=== PATIENT | female | born 1965 | race Two or more races ===

== ENCOUNTER 2017-11-16 14:31 | Emergency (ER) | payer MEDICAID ==
[2017-11-16 14:54] VITALS: BP 154/94; PULSE 98; RESP 18; TEMP 97.9; O2SAT 96
--- NOTE | 2017-11-16 15:30 | EDPHY ---
H & P Stated Complaint: Dx'd with UTI 3 days ago at ,started on Bactrim,changed to Cipro today Time Seen by Provider: 11/16/17 15:21 - Personal History LMP (Females 10-55): Post Menopausal Current Tetanus Diphtheria and Acellular Pertussis (TDAP): Yes - Medical/Surgical History Hx Diabetes: Yes - Social History Smoking Status: Current every day smoker Constitutional: Initial Vital Signs Temperature (C) 36.6 C 11/16/17 14:40 Heart Rate 98 11/16/17 14:40 Respiratory Rate 18 11/16/17 14:40 Blood Pressure 154/94 H 11/16/17 14:40 O2 Sat (%) 96 11/16/17 14:40 O2 Delivery Mode Room Air Allergies/Adverse Reactions: aspirin Allergy (Unknown, Verified 11/16/17 14:54) Home Medications: Medication Instructions Recorded Ciprofloxacin [Cipro] 500 mg PO BID #14 tab 11/16/17 Lisinopril [Zestril 10 mg (*)] 10 mg PO 11/16/17 Phenazopyridine HCl [Pyridium] 200 mg PO TID #6 tab 11/16/17 Sulfamethox/Tmp 800/160 mg 1 tab PO 11/16/17 [Bactrim Ds] glyBURIDE [Glyburide] 5 mg PO 11/16/17 metFORMIN HCL [Glucophage 500 mg 500 mg PO BIDMEAL 11/16/17 (*)] Medical Decision Making ED Course/Re-evaluation: CHIEF COMPLAINT: UTI HISTORY OF PRESENT ILLNESS: The patient is a 52 y/o female arriving with her family member at the referral of urgent care for evaluation of a UTI. She was diagnosed with a UTI a few days ago at urgent care and was prescribed Bactrim. Her symptoms of dysuria and hematuria have not improved and urgent care called her and recommended switching to Cipro, which they called into a pharmacy for her, but she was told to come here first for unclear reasons. She denies fever, cough, cold, or other symptoms. REVIEW OF SYSTEMS: A 10 point review of systems was performed and is negative with the exception of the elements mentioned in the history of present illness. PHYSICAL EXAM: HR, BP, O2 Sat, RR. Temp noted General Appearance: Alert, well hydrated, appropriate, and non-toxic appearing. Head: Atraumatic without scalp tenderness or obvious injury Eyes: Pupils equal, round, reactive to light and accommodation, EOMI, no trauma , no injection. Ears: Clear bilaterally, no perforation, normal landmarks Nose: Atraumatic, no rhinorrhea, clear. Throat: There is no erythema or exudates, no lesions, normal tonsils, mucus membranes moist. Neck: Supple Respiratory: No distress Cardiovascular: Good capillary refill all extremities. Gastrointestinal: Abdomen is soft, non-tender, non-distended, no masses, no rebound, no guarding, no peritoneal signs. Musculoskeletal: Normal active ROM of all extremities, atraumatic. Neurological: Alert, appropriate, and interactive. Nonfocal neuro exam. Skin: No rashes, good turgor, no nodules on palpation. PAST MEDICAL HISTORY: Hypertension, diabetes PAST SURGICAL HISTORY: Noncontributory SOCIAL HISTORY: Family member at bedside. Went to [facility]. DIFFERENTIAL DIAGNOSIS: The differential diagnosis for the patient's symptoms included but was not limited to urinary tract infection, viral syndrome, and sepsis. MEDICAL DECISION MAKIN52 y/o female presents at referral of urgent care requesting Cipro for previously diagnosed UTI. It's unclear why she came to the ED as the urgent care called in a new prescription to a pharmacy for her. No new symptoms today, she just feels she has not improved. Benign abdomen. Urine sample has been sent for culture again. We will prescribe Cipro for her. She will be discharged with standard UTI care and follow up instructions. Return precautions discussed. Departure - Departure Disposition: Home, Routine, Self-Care Clinical Impression: UTI (urinary tract infection) Qualifiers: Urinary tract infection type: acute cystitis Hematuria presence: with hematuria Qualified Code(s): N30.01 - Acute cystitis with hematuria Condition: Good Instructions: Ciprofloxacin (By mouth), Urinary Tract Infection in Women (DC) Additional Instructions: 1. Discontinue Bactrim. 2. Start taking Cipro as prescribed. Complete entire prescription. 3. Use Pyridium as directed on the packaging for urinary discomfort. This may change the color of your urine; this is normal. 4. Follow up with your primary care provider for unimproved symptoms over the next 3-4 days. Referrals: [facility],. [Clinic] - As per Instructions Prescriptions: Ciprofloxacin [Cipro] 500 mg PO BID #14 tab Phenazopyridine HCl [Pyridium] 200 mg PO TID #6 tab Report Scribed for: Richard Fuentes Report Scribed by: Marcela Farah Date of Report: 11/16/17 Time of Report: 15:30
== END 2017-11-16 15:30 | disposition home or self-care (01) ==
DX: N30.01 Acute cystitis with hematuria (principal); E11.9 Type 2 diabetes mellitus without complications; F17.200 Nicotine dependence, unspecified, uncomplicated; I10 Essential (primary) hypertension; B96.20 Unspecified Escherichia coli [E. coli] as the cause of diseases classified elsewhere; Z79.84 Long term (current) use of oral hypoglycemic drugs

== ENCOUNTER 2019-02-28 21:21 | Inpatient (IN) | payer MEDICAID ==
[2019-02-28] MEDS ORDERED: NS 1,000 ML IV ONE ×2 (21:40→22:34)
[2019-02-28 22:00] LABS: PLATELET COUNT 252 10^3/uL (150-400)
[2019-02-28] MEDS ORDERED: LISINOPRIL 20 MG TAB PO ONE (22:06)
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
[2019-03-01] MEDS ORDERED: metFORMIN HCL 500 MG TAB PO ONE (00:29)
[2019-03-01] MEDS ORDERED: IBUPROFEN 600 MG TAB PO ONE (06:05)
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
[2019-03-01] MEDS ORDERED: OLANZapine DISINTEGR 10 MG TAB PO PRN (14:46)
[2019-03-01] MEDS ORDERED: MAGNESIUM HYDROXIDE 30 ML UDCUP PO PRN (14:46)
[2019-03-01] MEDS ORDERED: LORazepam 0.5 MG TAB PO PRN (14:46)
[2019-03-01] MEDS ORDERED: ACETAMINOPHEN 325 MG TAB PO PRN (14:46)
[2019-03-01] MEDS ORDERED: NICOTINE POLACRILEX 2 MG GUM B PRN (14:46)
[2019-03-01] MEDS ORDERED: MAG HYDROX/AL HYDROX/SIMETH 30 ML UDCUP PO PRN (14:46)
[2019-03-01] MEDS: metFORMIN HCL 500 MG TAB PO SCH (17:04)
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
[2019-03-01] MEDS: traZODone 100 MG TAB PO PRN (20:47)
[2019-03-01] MEDS ORDERED: LITHIUM CARBONATE ER 300 MG TAB PO SCH (21:00)
--- NOTE | 2019-03-02 08:48 | SOAPPROG ---
SOAP Progress Note Assessment/Plan: Assessment: Bipolar II Disorder. Medication non-adherence prior to admission. Slight improvement noted (see Subjective/Objective). Patient could benefit from continued inpatient hospitalization for crisis stabilization, safety, and lithium level prior to discharge to ensure therapeutic level. Plan: 1. Psychotropic medications: Increase lithium to 300 mg po QD and 600 mg po QHS. 2. Review with patient informed consent and recommendations for psychotropic medication treatment listed below 3. Labs: A1c, liver function, lipid panel, and TSH. [place] level AM. 4. Therapy: continue milieu and group therapy 5. Further investigation including gathering information from patients relatives and review of past case records to inform treatment plan. 6. Safety/Wellness plan and follow-up outpatient appointments to be established prior to discharge. Next steps are for patient to meet with healthcare economics consultant to plan a safe discharge plan and establish outpatient services for ongoing treatment. 7. Confer with inpatient treatment team regarding treatment plan. 8. Psychosocial stressors addressed through outsole caser 9. Legal status: voluntary 10. Consider discharge after lithium level if patient is in stable condition, safe, and has a safe discharge plan. PSYCHOTROPIC MEDICATION TREATMENT INFORMED CONSENT and RECOMMENDATIONS: Review nature of condition, diagnosis, and prognosis. Review nature and purpose of psychotropic medication treatment. Review type of psychotropic medications being ordered. Review risk and benefits of psychotropic medication treatment. Review probable length of time patient will need to take medications. Review risk and benefits of not undergoing psychotropic medication treatment. Review alternative treatments to psychotropic medications. Review psychotropic medications contraindications, drug-drug interactions, side effects, and importance of reporting any side effects to a psychiatric provider or nurse during inpatient hospitalization, and upon discharge to patients psychiatric outpatient provider, primary care provider, or other health healthcare interpreter. Review importance of asking a nurse, psychiatric provider, or primary care provider any questions or problems concerning the psychotropic medications. Verify patient understands the information that has been provided, and understands, accepts, and agrees to psychotropic medications. Review patients safety plan and importance of patient to report to staff while hospitalized if patient is ever a danger to self/others, or unable to care for self, and upon discharge, the importance for patient to contact [facility] or 1, or go to the nearest emergency room, if patient is ever a danger to self/others, or unable to care for self. Recommend that upon discharge patient establish medication management treatment with a psychiatric provider, establishes routine therapy appointments, and follow-up with primary care provider. Verify patient understands and agrees to these recommendations. 03/02/19 08:49 Subjective: Following up with patient for evaluation of mood and safety. Patient states, "Doing better." Patient reports no side effects from current medications. Review current dosing of medications with patient, and patient states, "I need a lot higher dose of lithium than that (300 mg BID) to get stable. I have been on lithium since my early 20s. I am not sure of the exact dose, but I think it is around 1,000 a day." Patient agrees to increase lithium to 300 mg po QD and 600 mg po QHS with lithium level on morning prior to AM dose. Objective: Vital Signs Temp Pulse Resp BP Pulse Ox 36.9 C 75 14 136/78 H 97 03/02/19 06:00 03/02/19 06:00 03/02/19 06:00 03/02/19 06:00 03/02/19 06:00 MD REPORT FROM WEEKEND: Hx BD II, has not taken meds for over 3 months. Re- started her meds, including BP and DM meds, except Seroquel which she didnt want. MSE: The patient is a well-nourished female looking stated chronological age. Attire is appropriate dress is casual. Grooming status is appropriate. Ambulation is independent. Gait is normal and coordinated. Posture is normal and relaxed. Eye contact is appropriate. Motor activity is appropriate with purposeful, organized, coordinated movements; with no involuntary movements. Attitude is cooperative. Patient appears attentive, and relates well to this interviewer. Language production is spontaneous. Rate is pressured, latency of response is shortened, with inappropriately high volume. Articulation is clear. Patient reports mood as okay with expansive affect. Patients thought process is circumstantial. Patient does not report suicidal/homicidal thoughts , ideas, or plans. Patient denies auditory, visual hallucinations. Patient denies delusions. Patient does not appear to be attending to internal stimuli. Patients attention and concentration are poor. Patient is oriented to person , place, time. Patients insight is poor. Patients judgment is poor. - Time Spent With Patient Time Spent With Patient: 15 minutes, met with patient individually. - Pending Discharge Pending Discharge Within 24 Hours: No Pending Discharge Within 48 Hours: No ICD10 Worksheet Patient Problems: Problems Problem Status Onset Bipolar II disorder Acute Depression Acute
[2019-03-02] MEDS: LISINOPRIL 10 MG TAB PO SCH (09:29)
[2019-03-02] MEDS: metFORMIN HCL 500 MG TAB PO SCH ×2 (09:30→17:12)
[2019-03-02] MEDS: LITHIUM CARBONATE ER 300 MG TAB PO SCH ×2 (09:30→20:42)
[2019-03-02] MEDS: glyBURIDE 5 MG TAB PO SCH ×2 (09:37→10:04)
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
--- NOTE | 2019-03-03 06:34 | SOAPPROG ---
SOAP Progress Note Assessment/Plan: Assessment: Bipolar II Disorder. Medication non-adherence prior to admission. Slight improvement noted (see Subjective/Objective). Patient could benefit from continued inpatient hospitalization for crisis stabilization, safety, and lithium level prior to discharge to ensure therapeutic level. Plan: 1. Psychotropic medications: no changes. 2. Review with patient informed consent and recommendations for psychotropic medication treatment listed below 3. Labs: no additional. 4. Therapy: continue milieu and group therapy 5. Further investigation including gathering information from patients relatives and review of past case records to inform treatment plan. 6. Safety/Wellness plan and follow-up outpatient appointments to be established prior to discharge. Next steps are for patient to meet with professional healthcare representative to plan a safe discharge plan and establish outpatient services for ongoing treatment. 7. Confer with inpatient treatment team regarding treatment plan. 8. Psychosocial stressors addressed through machine adjuster leader case trim 9. Legal status: voluntary 10. Consider discharge after lithium level if patient is in stable condition, safe, and has a safe discharge plan. PSYCHOTROPIC MEDICATION TREATMENT INFORMED CONSENT and RECOMMENDATIONS: Review nature of condition, diagnosis, and prognosis. Review nature and purpose of psychotropic medication treatment. Review type of psychotropic medications being ordered. Review risk and benefits of psychotropic medication treatment. Review probable length of time patient will need to take medications. Review risk and benefits of not undergoing psychotropic medication treatment. Review alternative treatments to psychotropic medications. Review psychotropic medications contraindications, drug-drug interactions, side effects, and importance of reporting any side effects to a psychiatric provider or nurse during inpatient hospitalization, and upon discharge to patients psychiatric outpatient provider, primary care provider, or other health direct care counselor. Review importance of asking a nurse, psychiatric provider, or primary care provider any questions or problems concerning the psychotropic medications. Verify patient understands the information that has been provided, and understands, accepts, and agrees to psychotropic medications. Review patients safety plan and importance of patient to report to staff while hospitalized if patient is ever a danger to self/others, or unable to care for self, and upon discharge, the importance for patient to contact [facility] or [facility], or go to the nearest emergency room, if patient is ever a danger to self/others, or unable to care for self. Recommend that upon discharge patient establish medication management treatment with a psychiatric provider, establishes routine therapy appointments, and follow-up with primary care provider. Verify patient understands and agrees to these recommendations. 03/03/19 06:33 Subjective: Following up with patient for evaluation of mood and safety. Patient states, "Feeling much better. Good to get started back on medications." Patient reports no side effects from current medications, and agrees to continue current medications. Objective: Vital Signs Temp Pulse Resp BP Pulse Ox 36.6 C 74 14 141/69 H 97 03/03/19 06:00 03/03/19 06:00 03/03/19 06:00 03/03/19 06:00 03/03/19 06:00 MSE: The patient is a well-nourished female looking stated chronological age. Attire is appropriate dress is casual. Grooming status is appropriate. Ambulation is independent. Gait is normal and coordinated. Posture is normal and relaxed. Eye contact is appropriate. Motor activity is appropriate with purposeful, organized, coordinated movements; with no involuntary movements. Attitude is cooperative. Patient appears attentive, and relates well to this interviewer. Language production is spontaneous. Rate is pressured, latency of response is shortened, with inappropriately high volume. Articulation is clear. Patient reports mood as anxious with expansive affect. Patients thought process is circumstantial. Patient does not report suicidal/homicidal thoughts, ideas, or plans. Patient denies auditory, visual hallucinations. Patient denies delusions. Patient does not appear to be attending to internal stimuli. Patients attention and concentration are poor. Patient is oriented to person, place, time. Patients insight is poor. Patients judgment is poor. - Time Spent With Patient Time Spent With Patient: 15 minutes, met with patient individually. - Pending Discharge Pending Discharge Within 24 Hours: No Pending Discharge Within 48 Hours: No ICD10 Worksheet Patient Problems: Problems Problem Status Onset Bipolar II disorder Acute Depression Acute
[2019-03-03] MEDS: metFORMIN HCL 500 MG TAB PO SCH ×2 (09:21→17:55)
[2019-03-03] MEDS: LITHIUM CARBONATE ER 300 MG TAB PO SCH ×2 (09:21→20:36)
[2019-03-03] MEDS: LISINOPRIL 10 MG TAB PO SCH (09:21)
[2019-03-03] MEDS: glyBURIDE 5 MG TAB PO SCH (09:22)
--- NOTE | 2019-03-03 13:40 | ASMTBHDC ---
Notes Note: Notes: The patient called and spoke with multiple advocates at [facility] confirming that she is able to return to their [facility] upon discharge. The patient anticipates discharging on , March 05. The patient was calm, engaged, and appropriate. She expressed appreciation and reported improved mood. The patient reported "trembling" each morning when she wakes. She is curious why and plans to discuss this with the provider. [facility] [address], [address] [place] [address], [id number] O# [phone] Next appointment with Sawyer Fernandez for Intake Assessment on March 12 @ 9:00; check-in @ 8:50. [facility] [address], [address] [place] [address], [id number] Next appointment with Dedra Bocanegra NP on March 13 @ 7:50-9:00. Date Signed: 03/03/2019 01:39 PM Electronically Signed By:Kate Bustos
--- NOTE | 2019-03-04 06:32 | SOAPPROG ---
SOAP Progress Note Assessment/Plan: Assessment: Bipolar II Disorder. Medication non-adherence prior to admission. Improvement noted (see Subjective/Objective). Patient could benefit from continued inpatient hospitalization for crisis stabilization, safety, and lithium level prior to discharge to ensure therapeutic level. Consider discharge tomorrow after lithium level if stable and safe discharge plan. Plan: 1. Psychotropic medications: no changes. 2. Review with patient informed consent and recommendations for psychotropic medication treatment listed below 3. Labs: lithium level tomorrow AM prior to AM dose 4. Therapy: continue milieu and group therapy 5. Further investigation including gathering information from patients relatives and review of past case records to inform treatment plan. 6. Safety/Wellness plan and follow-up outpatient appointments to be established prior to discharge. Next steps are for patient to meet with home care giver to plan a safe discharge plan and establish outpatient services for ongoing treatment. 7. Confer with inpatient treatment team regarding treatment plan. 8. Psychosocial stressors addressed through shoe parts caser 9. Legal status: voluntary 10. Consider discharge after lithium level if patient is in stable condition, safe, and has a safe discharge plan. PSYCHOTROPIC MEDICATION TREATMENT INFORMED CONSENT and RECOMMENDATIONS: Review nature of condition, diagnosis, and prognosis. Review nature and purpose of psychotropic medication treatment. Review type of psychotropic medications being ordered. Review risk and benefits of psychotropic medication treatment. Review probable length of time patient will need to take medications. Review risk and benefits of not undergoing psychotropic medication treatment. Review alternative treatments to psychotropic medications. Review psychotropic medications contraindications, drug-drug interactions, side effects, and importance of reporting any side effects to a psychiatric provider or nurse during inpatient hospitalization, and upon discharge to patients psychiatric outpatient provider, primary care provider, or other health long term care phlebotomist. Review importance of asking a nurse, psychiatric provider, or primary care provider any questions or problems concerning the psychotropic medications. Verify patient understands the information that has been provided, and understands, accepts, and agrees to psychotropic medications. Review patients safety plan and importance of patient to report to staff while hospitalized if patient is ever a danger to self/others, or unable to care for self, and upon discharge, the importance for patient to contact [facility] or [facility], or go to the nearest emergency room, if patient is ever a danger to self/others, or unable to care for self. Recommend that upon discharge patient establish medication management treatment with a psychiatric provider, establishes routine therapy appointments, and follow-up with primary care provider. Verify patient understands and agrees to these recommendations. 03/04/19 06:32 Subjective: Following up with patient for evaluation of mood and safety. Patient states, "Feeling better." Patient reports no side effects from current medications, and agrees to continue current medications. Patient agrees with plan to discharge tomorrow after lithium level result is posted. Objective: Vital Signs Temp Pulse Resp BP Pulse Ox 36.6 C 74 14 141/69 H 97 03/03/19 06:00 03/03/19 06:00 03/03/19 06:00 03/03/19 09:21 03/03/19 06:00 MSE: The patient is a well-nourished female looking stated chronological age. Attire is appropriate dress is casual. Grooming status is appropriate. Ambulation is independent. Gait is normal and coordinated. Posture is normal and relaxed. Eye contact is appropriate. Motor activity is appropriate with purposeful, organized, coordinated movements; with no involuntary movements. Attitude is cooperative. Patient appears attentive, and relates well to this interviewer. Language production is spontaneous. R/R/V normal. Articulation is clear. Patient reports mood as anxious with congruent affect. Patients thought process is linear and logical, with no signs of formal thought disorder. Patient does not report suicidal/homicidal thoughts, ideas, or plans. Patient denies auditory, visual hallucinations. Patient denies delusions. Patient does not appear to be attending to internal stimuli. Patients attention and concentration are poor. Patient is oriented to person, place, time, and situation. Patients insight is fair. Patients judgment is fair. - Time Spent With Patient Time Spent With Patient: 15 minutes, met with patient individually. - Pending Discharge Pending Discharge Within 24 Hours: Yes Pending Discharge Within 48 Hours: No Pending Discharge Date: 03/05/19 Pending Discharge Time: 11:00 ICD10 Worksheet Patient Problems: Problems Problem Status Onset Bipolar II disorder Acute Depression Acute
[2019-03-04] MEDS: LISINOPRIL 10 MG TAB PO SCH (08:26)
[2019-03-04] MEDS: metFORMIN HCL 500 MG TAB PO SCH ×2 (08:26→17:07)
[2019-03-04] MEDS: LITHIUM CARBONATE ER 300 MG TAB PO SCH ×2 (08:26→17:57)
[2019-03-04] MEDS: glyBURIDE 5 MG TAB PO SCH (08:27)
--- NOTE | 2019-03-04 11:23 | ASMTCMCOM ---
CM Note CM Note Notes: CC checked in with ct. who reported that she is doing OK and that her mood is stable. Ct. is discharging tomorrow. [facility] is holding [facility] and she will return there. She has follow up appointments scheduled with [facility] and [facility]. Date Signed: 03/04/2019 11:22 AM Electronically Signed By:Cindy Brooks
[2019-03-04] MEDS: traZODone 100 MG TAB PO PRN (21:43)
[2019-03-05] MEDS ORDERED: LISINOPRIL 10 MG TAB PO SCH
[2019-03-05] MEDS ORDERED: LITHIUM CARBONATE 300 MG TAB PO SCH ×2
[2019-03-05] MEDS ORDERED: traZODone 100 MG TAB PO SCH
[2019-03-05] MEDS ORDERED: glyBURIDE 5 MG TAB PO SCH
[2019-03-05] MEDS ORDERED: metFORMIN HCL 500 MG TAB PO SCH
[2019-03-05 07:05] VITALS: BP 130/71
[2019-03-05] MEDS: glyBURIDE 5 MG TAB PO SCH (08:41)
[2019-03-05] MEDS: LISINOPRIL 10 MG TAB PO SCH (08:41)
[2019-03-05] MEDS: metFORMIN HCL 500 MG TAB PO SCH (08:41)
[2019-03-05] MEDS: LITHIUM CARBONATE ER 300 MG TAB PO SCH (08:41)
--- NOTE | 2019-03-05 09:59 | BDS ---
[f rep st] BEHAVIORAL HEALTH DISCHARGE SUMMARY REASON FOR ADMISSION: From the ED note dated 02/28/2019, patient with history of by bipolar disorder, presented to the emergency department by ambulance. [facility] Reportedly been off her medications for 3 months. Patient reported increased depression with suicidal ideation. Patient was admitted voluntarily due to being a danger to herself. Patient was admitted for safety, crisis stabilization, and medication management. ADMITTING DIAGNOSIS: Bipolar II disorder, most recent depressed. ADMISSION PHYSICAL EXAM: Patient was seen for history and physical consultation on 03/02/2019, for medical clearance for inpatient psychiatric hospitalization and treatment. Patient was medically cleared for inpatient psychiatric hospitalization and treatment. For further details, please refer to both ED general document dated 02/28/2019 and consultation document dated . ADMISSION LABS: 1. CBC within normal limits except red blood cells were low at 3.94, hemoglobin was low at 12.4, hematocrit low at 35.0, basophils low at 0.2 and absolute lymphocytes were elevated at 3.13. 2. BMP within normal limits except the sodium was low at 132, carbon dioxide was low at 19, and creatinine was low at 0.5. Glucose was elevated at 349. POC glucose was elevated at 131. Hemoglobin A1c elevated at 14.7, average estimated glucose is elevated at 375. 3. Liver function within normal limits except alkaline phosphatase was elevated at 150. 4. Lipid panel within normal limits except triglycerides were elevated at 226. Cholesterol was low at 133, LDL cholesterol calculated was low at 58. VLDL cholesterol is elevated at 45, HDL cholesterol was low at 30. 5. TSH within normal limits at 1.120. 6. Urine test was negative. 7. Toxicology screen negative for barbiturates, negative for amphetamine, negative for benzodiazepines, negative for ethyl alcohol. 8. [place] level: 0.7 MAJOR PROCEDURES OR TESTS: None. HOSPITAL COURSE: The most prominent symptoms and behaviors while the patient was here were reports of severe depression, severe anxiety, treatment modalities utilized were milieu and group therapy. Patient's outpatient medications were restarted as patient reported not taking the medications for 3 months. The following medications were restarted: Glyburide 5 mg p.o. daily, was tolerated with no report of side effects and with good response; lithium ER 300 mg p.o. daily and 600 mg p.o. at bedtime was started to target mood symptoms , was tolerated with no report of side effects and with good response; lisinopril 10 mg p.o. daily was continued and was tolerated; metformin HCL 1000 mg p.o. twice daily with meal, was tolerated with no report of side effects and with good response; trazodone 100 mg p.o. at bedtime was continued to target insomnia and depression, was tolerated with no report of side effects and with good response. Patient has improved considerably with no signs of psychiatric symptoms and no psychiatric symptoms expressed. Patient reports she has improved since admission, states to be in stable condition, feels safe to discharge, and she contracts for safety. Patients response to treatment was good. There were no adverse or unexpected results of treatment. The patient was safe throughout stay, active in treatment, engaged in groups, and was appropriate with staff. Patient met with treatment team prior to discharge to assess readiness to discharge and review discharge plan. The treatment team consensus is the patient in stable condition, has a safe discharge plan, and is ready to discharge today. CONDITION AT DISCHARGE: Patient is in stable condition and is no longer a danger to self or others, and is not gravely disabled due to mental illness. Patient is no longer in need of inpatient level of care, and can be safely and effectively treated within the community. The patients level of risk at time of discharge is low. MSE: The patient is casually dressed and with good hygiene , and looks stated age. Patient is sitting, posture is upright, and position is relaxed. Patient appears awake, alert, and responds appropriately and reasonably during interview. Patient is engaged, relates well to interviewer, and emotional facial expression is appropriate to situation and changes appropriately with topic. Patient is cooperative, makes comfortable eye contact , and movements are voluntary, deliberate, coordinated, and smooth and even with no inappropriate movements. Patient makes laryngeal sounds effortlessly and shares conversation appropriately; pace of conversation is appropriate, and stream of talking is fluent; articulation is clear and understandable; word choice is effortless and appropriate for education level; completes sentences, occasionally pausing to think; rate and volume are appropriate for interview and setting. Patient reports mood as euthymic. Patients affect is stable with full variable range, congruent with mood, and appropriate to speech and circumstances. Patient has linear and logical thinking, with no loose associations, tangential thought, thought blocking, concrete thinking, or any other signs of formal thought disorder. Patient denies suicidal and homicidal ideation, and denies hallucinations and delusions. Patient appears to be a reliable historian with sound judgement and good insight into current condition. Patient has no apparent dysfunction in recent or remote memory noted , and no evidence of gross cognitive dysfunction noted at any point during the interview. DISCHARGE DIAGNOSES: Bipolar II disorder, most recent depressed. CURRENT MEDICATIONS: After reviewing options, risks and benefits with the patient, patient agrees to continue the followin. Glyburide 5 mg p.o. daily. 2. Lithobid 300 mg p.o. daily and 600 mg p.o. at bedtime. 3. Lisinopril 10 mg p.o. daily. 4. Metformin HCL 1000 mg p.o. twice daily with meal. 5. Trazodone 100 mg p.o. at bedtime. Patient requests prescriptions for these medications at time of discharge and prescriptions for 30 days are provided. Prescriptions and medications are reviewed with the patient at time of discharge to ensure accuracy and patient understanding. DISPOSITION: Patient left hospital independently and voluntarily. FOLLOWUP: transcription coordinator reports the appropriate outpatient follow-up services have been established and outpatient appointments have been scheduled. The patient received written instructions with times and dates of outpatient follow-up appointments. The following follow-up recommendations were provided to the patient at discharge: Continue psychotropic medications as prescribed and attend appointments as scheduled. Report any side effects to a psychiatric outpatient provider, a primary care provider, or other health respiratory care assistant. Address any questions or problems concerning the psychotropic medications with a psychiatric outpatient provider, a primary care provider, or other health respiratory care assistant. Contact [facility] or [facility], or go to the nearest emergency room, if you are ever a danger to yourself/others, or unable to care for yourself. As soon as possible, establish a routine medication management treatment with a psychiatric provider, establish routine therapy appointments, and follow-up with a primary care provider. LEGAL COURSE: Patient was admitted voluntarily for inpatient psychiatric hospitalization and treatment. Patient discharged today independently and voluntarily. ATTITUDE AT TIME OF DISCHARGE: The patients attitude was positive at time of discharge, and patient reports looking forward to discharging today. The patient reports she feels safe to discharge, is no longer a danger to herself or others, is in stable condition, and contracts for safety. Patient states she will continue medications as prescribed, and establish medication management treatment with an outpatient provider after discharge. Patient reports she understands the information that has been provided to her, and she understands, accepts, and agrees to psychotropic medications. Patient describes internal protective factors as the coping skills she has learned while hospitalized here, and she plans to continue to practice these coping skills after discharge. LABS AND RADIOLOGY STUDIES: There were no pending labs or studies at time of discharge. ADVANCE DIRECTIVES: There were no advance directives on file, and patient was full code during this hospitalization. The following psychotropic medication treatment informed consent and recommendations were provided to the patient at time of discharge. Patient reports she understands, accepts, and agrees to the information that has been provided. PSYCHOTROPIC MEDICATION TREATMENT INFORMED CONSENT and RECOMMENDATIONS: Review nature of condition, diagnosis, and prognosis. Review nature and purpose of psychotropic medication treatment. Review type of psychotropic medications being prescribed. Review risk and benefits of psychotropic medication treatment. Review probable length of time will need to take medications. Review risk and benefits of not undergoing psychotropic medication treatment. Review alternative treatments to psychotropic medications. Review psychotropic medications contraindications, side effects, and importance of reporting any side effects to a psychiatric provider, primary care provider, or other health respiratory care assistant. Review importance of her asking a psychiatric provider or primary care provider any questions or problems concerning the psychotropic medications. Review importance of reporting to a psychiatric provider, primary care provider, or other health respiratory care assistant if she plans to or becomes . Review safety plan and the importance to contact [facility] or [facility] , or go to the nearest emergency room, if ever a danger to yourself/others, or unable to care for yourself. Recommend upon discharge to establish routine medication management treatment with a psychiatric provider, establish routine therapy appointments, and follow-up with a primary care provider. Verify patient understands, accepts, and agrees to the information that has been provided. /[id number]/[id number]
== END 2019-03-05 12:30 | disposition home or self-care (01) | DRG 753 ==
LOC: EDUNIT# → EEVIPCON 21:21 → BBEH 03-01 11:25
PROVIDERS: ADMIT Psychiatry & Neurology Psychiatry; ATTEND Psychiatry & Neurology Psychiatry
DX: F31.81 Bipolar II disorder (principal); E11.65 Type 2 diabetes mellitus with hyperglycemia; T43.506A Underdosing of unspecified antipsychotics and neuroleptics, initial encounter; F60.3 Borderline personality disorder; I10 Essential (primary) hypertension; D64.9 Anemia, unspecified; Z72.0 Tobacco use; Z98.1 Arthrodesis status
CPT/HCPCS: 80305; G0480

== ENCOUNTER 2019-03-29 13:41 | Emergency (ER) | payer MEDICAID ==
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
[2019-03-29] MEDS ORDERED: SULFAMETHOX/TMP 800/160 MG 1 TAB PO ONE (14:40)
[2019-03-29 14:47] VITALS: BP 124/82
--- NOTE | 2019-03-29 15:51 | ASMTCMCOM ---
CM Note CM Note Notes: CM requested to speak to pt re:resources or any other support needs. Pt states she is seen by [facility] at their [facility] location at [facility]. Pt states she plans on going there tomorrow to schedule a followup appt. Pt states she has been staying at respite through [facility] and plans on staying there tonight as well. Pt also plans on following up w/[facility] at [facility] tomorrow. Pt provided info and [facility]. Pt states she will be able to get her Rxn filled through her Medicaid at a local pharmacy. CM to follow up w/JETT Leong Ele[employer] ([phone] ext [phone] - do not give # out to patients) at the [facility] at [facility] tomorrow and relay pt's need for appt. Pt expressed no other needs at this time. Pt very pleasant and appreciative of assistance. Date Signed: 03/29/2019 03:51 PM Electronically Signed By:Jodie Patel RN
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
== END 2019-03-29 15:00 | disposition home or self-care (01) ==
LOC: EEVIPCON 13:41
PROC: 0U9MXZZ Drainage of Vulva, External Approach (ICD-10-PCS; principal; 2019-03-29)
DX: N76.4 Abscess of vulva (principal); F31.9 Bipolar disorder, unspecified; E11.9 Type 2 diabetes mellitus without complications; F43.10 Post-traumatic stress disorder, unspecified; F17.200 Nicotine dependence, unspecified, uncomplicated; Z79.84 Long term (current) use of oral hypoglycemic drugs; Z59.0 Homelessness

== ENCOUNTER 2019-04-29 22:26 | Emergency (ER) | payer MEDICAID | END 2019-04-29 23:04 | disposition left against medical advice (07) ==

== ENCOUNTER → 2019-05-01 | Outpatient (CLI) | payer MEDICAID | LOC: FIMAGING 13:24 ==

== ENCOUNTER 2019-05-02 11:04 | Emergency (ER) | payer MEDICAID | END 2019-05-02 14:55 | disposition home or self-care (01) ==